=== PATIENT | male | born 1970 ===

== ENCOUNTER 2025-02-03 16:05 | Emergency (ER) | payer BC ==
[~2025-02-03] VITALS: Ht 196.8 cm; Wt 91.5 kg
--- NOTE | 2025-02-03 16:17 | ELECTROCARDIOGRAPH REPORT ---
[facility] Test Date: 2025-02-03 Test Time: 16:15:34 Pat Name: DENY POOLE Department: EMERGENCY ROOM Patient ID: [id number] Room: Gender: M Pet Care Assistant: CHELY : 1970 Requested By: SOLIS KUMAR Order Number: [id number] Reading MD: Dr. Lb Peck Measurements Intervals [place] Rate: 66 P: 82 MT: 151 QRS: 65 QRSD: 96 T: 51 QT: 427 QTc: 448 Interpretive Statements Sinus rhythm Electronically Signed On 02-03-2025 17:20:[address] Lb Peck Please click the below link to view image of tracing.
[2025-02-03 16:18] VITALS: TEMP 98
[2025-02-03 16:40] LABS: BASOPHILS % (AUTO) 0.8 % (0-1); EOSINOPHILS # (AUTO) 0.1 X10'3 (0-0.9); EOSINOPHILS % (AUTO) 2.4 % (0-6); HEMATOCRIT 46.2 % (42.0-52.0); HEMOGLOBIN 15.5 g/dl (14.0-17.9); LYMPHOCYTES # (AUTO) 2.1 X10'3 (1.1-4.8); LYMPHOCYTES % (AUTO) 34.7 % (21-51); MEAN CORPUSCULAR HEMOGLOBIN 28.8 PG (27.0-31.0); MEAN CORPUSCULAR HGB CONC 33.6 g/dL (33.0-36.5); MEAN CORPUSCULAR VOLUME 85.7 FL (78-98); MONOCYTES # (AUTO) 0.7 X10'3 (0-0.9); MONOCYTES % (AUTO) 11.7 % (2-12); NEUTROPHILS # (AUTO) 3.1 X10'3 (1.8-7.7); NEUTROPHILS % (AUTO) 50.4 % (42-75); PLATELET COUNT 308 X10'3 (140-440); RED BLOOD COUNT 5.38 X10'6 (4.70-6.10); RED CELL DISTRIBUTION WIDTH 13.9 % (11.5-14.5); WHITE BLOOD COUNT 6.1 X10'3 (4.5-11.0)
--- NOTE | 2025-02-03 16:41 | RADIOLOGY REPORT ---
CHEST RADIOGRAPH Indication: CP Technique: Single frontal view of the chest was obtained COMPARISON: None FINDINGS: Lines and Tubes: None Lungs: Clear Pleura: No effusion. No pneumothorax. Cardiomediastinal contours: Unremarkable Bones: Unremarkable IMPRESSION: No acute disease.
[2025-02-03 17:00] LABS: ALANINE AMINOTRANSFERASE 22 U/L (12-78); ALBUMIN 4.2 G/DL (3.4-5.0); ALBUMIN/GLOBULIN RATIO 1.4 (1.1-1.5); ALKALINE PHOSPHATASE 54 IU/L (46-116); ANION GAP 10 (8-16); ASPARTATE AMINO TRANSFERASE 26 U/L (10-37); BILIRUBIN,TOTAL 0.9 MG/DL (0.1-1.0); BLOOD UREA NITROGEN 18 MG/DL (7-18); BUN/CREATININE RATIO 15.5 (10.0-20.0); CALCIUM 8.8 MG/DL (8.5-10.1); CHLORIDE 106 MMOL/L (99-107); CREATININE 1.16 MG/DL (0.60-1.10); GLUCOSE 90 MG/DL (70-104); SODIUM 142 MMOL/L (135-145); TOTAL CARBON DIOXIDE 26.3 MMOL/L (24-32); TOTAL PROTEIN 7.2 G/DL (6.4-8.2); eCRCL 91 ML/MIN; eGFR 65 ML/MIN
[2025-02-03 17:01] LABS: PRO BRAIN NATRIURETIC PEPTIDE < 30 PG/ML (0-125)
--- NOTE | 2025-02-03 19:15 | Physician Documentation ---
History of Present Illness ~ Chief Complaint: Chest Pain Stated Complaint: CP Time Seen by MD: 18:30 HPI Patient presents today with complaints of experiencing some pressure and tightness in his chest radiating to left side of his neck and arm while he was completing a height to [place] as well as lasting in the car ride home. Patient denies any current chest pain or tightness. He denies any past medical history significant for cardiac risk factors including hypertension or diabetes. Patient denies any family history heart disease. Patient denies any diaphoresis or shortness of breath or abdominal pain or nausea, vomiting, diarrhea. Patient has no other concern or complaint at this time. Medication Reconciliation Allergies: Coded Allergies: No Known Allergies (Unverified , 02/03/25) Review of Systems Constitutional: Denies: chills, fever, weakness Eyes: Denies: pain, blurred vision ENT: Denies: ear pain, nose pain, throat pain, mouth pain Respiratory: Denies: cough, shortness of breath Cardiovascular: Denies: chest pain, palpitations Gastrointestinal: Denies: abdominal pain, nausea, vomiting Genitourinary: Denies: burning, dysuria Male Genitalia: Denies: penile discharge, testicular pain Neurological: Denies: headache, dizziness Musculoskeletal: Denies: pain, swelling Integumentary: Denies: rash, lesions Allergic/Immunologic: Denies: hives, itching Hematologic/Lymphatic: Denies: no symptoms reported Psychiatric: Denies: depression, anxiety Physical Exam Vital Signs: Temperature: 98.0, Source: Temporal, Heart Rate: 61, Respiratory Rate: 16, BP: 131/93, Pulse Oximetry: 100, Weight: 91.500 Oxygen Flow Rate: 0 Physical Exam General: Awake and Alert, no acute distress. HEENT: Conjunctiva pink, Sclera clear, Mucus Membranes moist. Neck: Supple without masses and tenderness. Resp: Unlabored. Lungs clear to auscultation bilaterally. Heart: Regular Rate and rhythm, normal S1 and S2 without murmur, rub or gallop. Abdomen: Soft and non tender no organomegaly Extremities: No cyanosis,clubbing or edema. Skin: Warm and Dry. Progress Results/Orders Results/Orders Vital Signs 02/03/25 16:18 Temp 98.0 Pulse 61 Resp 16 B/P (MAP) 131/93 Pulse Ox 100 O2 Flow Rate 0 Laboratory Tests Test 02/03/25 16:14 White Blood Count 6.1 Red Blood Count 5.38 Hemoglobin 15.5 Hematocrit 46.2 Mean Corpuscular Volume 85.7 Mean Corpuscular Hemoglobin 28.8 Mean Corpuscular Hemoglobin Concent 33.6 Red Cell Distribution Width 13.9 Platelet Count 308 Mean Platelet Volume 8.0 Neutrophils (%) (Auto) 50.4 Lymphocytes (%) (Auto) 34.7 Monocytes (%) (Auto) 11.7 Eosinophils (%) (Auto) 2.4 Basophils (%) (Auto) 0.8 Neutrophils # (Auto) 3.1 Lymphocytes # (Auto) 2.1 Monocytes # (Auto) 0.7 Eosinophils # (Auto) 0.1 Basophils # (Auto) 0.0 CBC Comment Sodium Level 142 Potassium Level 4.0 Chloride Level 106 Carbon Dioxide Level 26.3 Anion Gap 10 Blood Urea Nitrogen 18 Creatinine 1.16 H Estimated GFR/1.73 m2 65 BUN/Creatinine Ratio 15.5 Glucose Level 90 Calcium Level 8.8 Total Bilirubin 0.9 Aspartate Amino Transf (AST/SGOT) 26 Alanine Aminotransferase (ALT/SGPT) 22 Alkaline Phosphatase 54 Troponin I High Sensitivity 6 Pro-B-Type Natriuretic Peptide < 30 Total Protein 7.2 Albumin 4.2 Globulin 3.0 Albumin/Globulin Ratio 1.4 Chemistry Comments EKG/XRAY/CT/US/VASC/MRI EKG : Additional Comment EKG interpreted by myself today shows normal rate at 66 beats per minute, normal sinus rhythm, no sign of ischemia or ST segment elevation or repolarization abnormalities, no sign of axis deviation. Chest X-Ray : Additional Comments Chest x-ray interpreted by myself today shows no large effusion, no large infiltrate, normal mediastinum. DIAGNOSTIC RADIOLOGY Patient: DENY POOLE Medical Record: [id number] : 1970, Age: 54 Sex: Male Location: ER Patient Status: REG ER Service Date/Time: 05/08/25/ 1615 Ordering Physician: SOLIS KUMAR MD Exam: CHEST,SINGLE VIEW CHEST RADIOGRAPH Indication: CP Technique: Single frontal view of the chest was obtained COMPARISON: None FINDINGS: Lines and Tubes: None Lungs: Clear Pleura: No effusion. No pneumothorax. Cardiomediastinal contours: Unremarkable Bones: Unremarkable IMPRESSION: No acute disease. Electronically Signed by:BUDDY SALCEDO MD Date & Time: 02/03/25 163 Dictated by: BUDDY SALCEDO MD Dictation date and time: 02/03/25 163 Primary Care Provider: NO PRIMARY CARE PROVIDER cc: SOLIS KUMAR MD ~ Heart Score: Heart Score Response (Comments) Value History Moderate Suspicious 1 EKG Normal 0 Age 45-64 1 Risk Factors No known risk factors 0 Troponin Normal limit 0 Total 2 Medical Decision Making Findings Patient presents today with complaints of experiencing some pressure and tightness in his chest radiating to left side of his neck and arm while he was completing a [employer] to [employer] as well as lasting in the car ride home. Patient denies any current chest pain or tightness. He denies any past medical history significant for cardiac risk factors including hypertension or diabetes. Patient denies any family history heart disease. Patient denies any diaphoresis or shortness of breath or abdominal pain or nausea, vomiting, diarrhea. Patient has no other concern or complaint at this time. Patient's blood work and EKG and chest x-ray were all unremarkable and patient's heart score is low at two. Patient and I utilized shared decision-making. Patient will be discharged home and will return to ED with any worsening, concerning or changing symptoms. Patient will follow up with Cardiology for possible stress testing. Departure Disposition: HOME / SELF CARE / HOMELESS Impression: Primary Impression: Chest pain Qualified Codes: R07.9 - Chest pain, unspecified Condition: Improved Discharge Instructions: Nonspecific Chest Pain, Adult Additional Instructions: Patient's blood work and EKG and chest x-ray were all unremarkable and patient's heart score is low at two. Patient and I utilized shared decision-making. Patient will be discharged home and will return to ED with any worsening, concerning or changing symptoms. Patient will follow up with Cardiology for pos sible stress testing. Referrals: NO PRIMARY CARE PROVIDER (PCP) Signature Scribe Signature: No scribe Attestation: No scribe ANISH ROJO PAC February 03, 2025 19:15
[2025-02-03 19:22] VITALS: BP 122/71; PULSE 80; RESP 16; O2SAT 98
== END 2025-02-03 19:23 | disposition home or self-care (01) ==
LOC: ER 16:06
DX: R07.89 Other chest pain (principal)
CPT/HCPCS: 36415; 71045; 80053; 83880; 84484; 85025; 93005; 99285